=== PATIENT | female | born 2000 | race Caucasian/White ===

== ENCOUNTER → 2018-12-12 | Outpatient (CLI) | payer BC, OTHER ==
[~2018-12-12] MED LIST: Permethrin60 GM TP; Zofran Odt4 MG SL
[2018-12-17 15:06] LABS: CHLAMYDIA TRACHOMATIS, NAA Negative (Negative); NEISSERIA GONORRHOEAE, NAA Negative (Negative)
[2018-12-18 11:54] LABS: HPV 16 Negative (Negative); HPV 18 Negative (Negative); HPV OTHER HR TYPES Negative (Negative)
== END | disposition home or self-care (01) ==
LOC: LAB SHORT 09:44 → LAB 09:44
PROVIDERS: Nurse Practitioner Obstetrics & Gynecology
DX: Z01.419 Encounter for gynecological examination (general) (routine) without abnormal findings (principal); Z11.3 Encounter for screening for infections with a predominantly sexual mode of transmission
CPT/HCPCS: 87491; 87591; 87625; G0123

== ENCOUNTER → 2021-08-23 | Outpatient (CLI) | payer BC | LOC: LAB 16:11 → LAB SHORT 16:11 | DX: O09.93 Supervision of high risk pregnancy, unspecified, third trimester (principal); Z3A.00 Weeks of gestation of pregnancy not specified | CPT/HCPCS: 87081; 87150 ==

== ENCOUNTER 2021-09-09 04:12 | Inpatient (IN) | payer BC ==
[~2021-09-09] VITALS: Ht 170.2 cm; Wt 100.0 kg
[2021-09-09 05:05] LABS: BASOPHILS ABSOLUTE AUTO 0.05 K/mm3 (0.00-0.23); BASOPHILS PERCENT AUTO 0 % (0-2); EOSINOPHILS ABSOLUTE AUTO 0.28 K/mm3 (0.00-0.68); EOSINOPHILS PERCENT AUTO 2 % (0-6); Hematocrit 37.8 % (33.0-51.0); Hemoglobin 12.3 g/dL (11.5-16.0); IMMATURE GRAN ABSOLUTE AUTO 0.05 K/mm3 (0.00-0.10); IMMATURE GRAN PERCENT AUTO 0 % (0-1); LYMPHOCYTES ABSOLUTE AUTO 3.16 K/mm3 (0.84-5.20); LYMPHOCYTES PERCENT AUTO 26 % (21-46); MONOCYTES ABSOLUTE AUTO 0.82 K/mm3 (0.16-1.47); MONOCYTES PERCENT AUTO 7 % (4-13); Mean Corpuscular HGB 28.7 pg (26.0-34.0); Mean Corpuscular HGB Conc 32.5 g/dL (31.5-36.5); Mean Corpuscular Volume 88 fL (80-100); Mean Platelet Volume 10.5 fL (9.1-12.4); NEUTROPHILS ABSOLUTE AUTO 7.86 K/mm3 (1.96-9.15); NEUTROPHILS PERCENT AUTO 64 % (41-73); Platelet Count 277 K/mm3 (150-400); RDW Coefficient Variation 12.9 % (11.7-14.2); RDW Standard Deviation 40.8 fL (35.1-46.3); Red Blood Cell Count 4.29 M/mm3 (3.80-5.20); White Blood Cell Count 12.22 K/mm3 (4.00-11.30)
[2021-09-09] MEDS ORDERED: ASPIR 8181 M1 PO (05:10)
[2021-09-09] MEDS ORDERED: PRENA1 TRUE CO1 EAC1 PO (05:11)
[2021-09-09 05:32] LABS: Influenza A, PCR NEGATIVE (NEGATIVE); Influenza B, PCR NEGATIVE (NEGATIVE); Resp Syncytial Virus, PCR NEGATIVE (NEGATIVE); SARS-Cov-2 (COVID-19) PCR, MMC NEGATIVE (NEGATIVE)
--- NOTE | 2021-09-09 14:46 | NUR ---
1400 oob to shower. voided in shower. left thigh slightly numb but ambulated well. patient instrucsted to call for assistance prior to getting oob
[2021-09-10] MEDS ORDERED: IBUP800 PO (08:23)
== END 2021-09-10 10:44 | disposition home or self-care (01) | DRG 807 ==
LOC: OBS 04:12 → BC 04:15 → OBS 04:30 → BC 04:33
PROVIDERS: Advanced Practice Midwife; ADMIT Obstetrics & Gynecology
PROC: 10E0XZZ Delivery of Products of Conception, External Approach (ICD-10-PCS; principal; 2021-09-09)
PROC: 0UQMXZZ Repair Vulva, External Approach (ICD-10-PCS; 2021-09-09)
DX: O99.214 Obesity complicating childbirth (principal); Z37.0 Single live birth; O99.344 Other mental disorders complicating childbirth; Z20.822 Contact with and (suspected) exposure to COVID-19; F41.9 Anxiety disorder, unspecified; O69.81X0 Labor and delivery complicated by cord around neck, without compression, not applicable or unspecified; O71.82 Other specified trauma to perineum and vulva; E66.9 Obesity, unspecified; Z3A.37 37 weeks gestation of pregnancy; Z87.891 Personal history of nicotine dependence
CPT/HCPCS: 0241U; 36415; 51702; 59025; 85025; 86850; 86900; 86901; A9270; J2590; J3010; J7120

== ENCOUNTER → 2022-10-24 | Outpatient (CLI) | payer BC, OTHER ==
[~2022-10-24] MED LIST changes: +ASPIR 8181 M1 PO; +IBUP800 PO; +PRENA1 TRUE CO1 EAC1 PO
[2022-10-25 10:13] LABS: Candida species (DNA Probe) Negative (NEGATIVE); G. vaginalis (DNA Probe) Positive (NEGATIVE); T. vaginalis (DNA Probe) Negative (NEGATIVE)
== END | disposition home or self-care (01) ==
LOC: LAB SHORT 16:44 → LAB 16:44
PROVIDERS: Advanced Practice Midwife
DX: N76.0 Acute vaginitis (principal)
CPT/HCPCS: 87480; 87510; 87660

== ENCOUNTER → 2022-11-01 | Outpatient (CLI) | payer BC, OTHER | LOC: LAB 08:26 → LAB SHORT 08:26 | DX: R22.2 Localized swelling, mass and lump, trunk (principal) | CPT/HCPCS: 88305 ==

== ENCOUNTER → 2022-11-22 | Outpatient (CLI) | payer BC, OTHER | END | disposition home or self-care (01) | LOC: LAB SHORT 16:49 → LAB 16:49 | PROVIDERS: Family Medicine | DX: Z01.419 Encounter for gynecological examination (general) (routine) without abnormal findings (principal) | CPT/HCPCS: G0145 ==

== ENCOUNTER → 2023-05-03 | Outpatient (CLI) | payer BC, OTHER ==
[2023-05-04 10:25] LABS: Candida species (DNA Probe) Negative (NEGATIVE); G. vaginalis (DNA Probe) Negative (NEGATIVE); T. vaginalis (DNA Probe) Negative (NEGATIVE)
== END | disposition home or self-care (01) ==
LOC: LAB SHORT 14:49 → LAB 14:49
PROVIDERS: Obstetrics & Gynecology
DX: N76.0 Acute vaginitis (principal)
CPT/HCPCS: 87480; 87510; 87660

== ENCOUNTER → 2023-05-04 | Outpatient (CLI) | payer BC, OTHER | LOC: LAB 16:52 | DX: N89.8 Other specified noninflammatory disorders of vagina (principal) ==

== ENCOUNTER → 2024-06-28 | Outpatient (CLI) | payer BC | END | disposition home or self-care (01) | LOC: LAB 18:48 → LAB SHORT 18:48 | DX: N39.0 Urinary tract infection, site not specified (principal) | CPT/HCPCS: 87086 ==

== ENCOUNTER → 2024-09-02 | Outpatient (CLI) | payer BC ==
[2024-09-02 11:55] LABS: Source, Urine Clean Catch
[2024-09-02 14:04] LABS: Appearance, Urine Clear (Clear); Bilirubin, Urine Neg (Neg); Blood, Urine Neg (Neg); Color, Urine Yellow (P-Yellow); Glucose Qualitative, Urine Neg (Neg); Ketones, Urine 3+ (Neg); Leukocyte Esterase, Urine Neg (Neg); Nitrite, Urine Neg (Neg); Protein, Urine 2+ (Neg); Urobilinogen, Urine 1+ (Normal)
[2024-09-02 14:48] LABS: Amorphous Light (0-Heavy); Bacteria Few /hpf; Red Blood Cells, Urine Not Seen /hpf (0-2); Squamous Epithelial Cells Rare /hpf (Few); White Blood Cells, Urine 0-2 /hpf (0-5)
== END | disposition home or self-care (01) ==
LOC: LAB 11:54 → LAB SHORT 11:54
PROVIDERS: Obstetrics & Gynecology
DX: R35.0 Frequency of micturition (principal)
CPT/HCPCS: 81001

== ENCOUNTER → 2024-10-11 | Outpatient (CLI) | payer OTHER ==
[2024-10-12 09:45] LABS: Bacterial Vaginosis PCR Negative (NEGATIVE); Candida glabrata-krusei, PCR NOT DETECTED (NOT DETECT)
[2024-10-12 10:38] LABS: Candida Group, PCR DETECTED (NOT DETECT)
== END | disposition home or self-care (01) ==
LOC: LAB 16:05 → LAB SHORT 16:05
PROVIDERS: Obstetrics & Gynecology
DX: N89.8 Other specified noninflammatory disorders of vagina (principal)
CPT/HCPCS: 81515

== ENCOUNTER → 2024-12-12 | Outpatient (CLI) | payer OTHER ==
[2024-12-13 07:06] LABS: Bacterial Vaginosis PCR Negative (NEGATIVE); Candida Group, PCR NOT DETECTED (NOT DETECT); Candida glabrata-krusei, PCR NOT DETECTED (NOT DETECT)
== END ==
LOC: LAB SHORT 18:37 → LAB 18:37
PROVIDERS: Family Medicine
DX: O09.93 Supervision of high risk pregnancy, unspecified, third trimester (principal); N76.0 Acute vaginitis; Z3A.00 Weeks of gestation of pregnancy not specified
CPT/HCPCS: 81515; 87081; 87150

== ENCOUNTER 2025-01-13 10:45 | Inpatient (IN) | payer OTHER ==
[~2025-01-13] VITALS: Ht 172.7 cm; Wt 109.5 kg
[2025-01-13] VITALS (27 sets, daily range): BP systolic 103–155; BP diastolic 59–92
[2025-01-13] MEDS ORDERED: Misoprostol 200 MCG Tab PR PRN ×2 (11:05→22:30)
[2025-01-13] MEDS ORDERED: ePHEDrine Sulfate 50 MG/ML 1ML Injection XX PRN (11:05)
[2025-01-13] MEDS ORDERED: OXYTOCIN/RINGER'S LACTATE 500 ML IV PRN (11:05)
[2025-01-13] MEDS ORDERED: Oxytocin 10 Unit / ML Vial IM PRN (11:05)
[2025-01-13] MEDS ORDERED: Carboprost Tromethamine 250 MCG/ML 1ML Amp IM PRN ×2 (11:05→22:30)
[2025-01-13] MEDS ORDERED: Tranexamic Acid 100 ML IV SCH (11:05)
[2025-01-13] MEDS ORDERED: FentaNYL 2mcg/ml-Bup 0.1% Epd 250 ML EPI PRN (11:05)
[2025-01-13] MEDS ORDERED: Lactated Ringer's 1,000 ML IV PRN ×3 (11:05→11:10)
[2025-01-13] MEDS ORDERED: Lactated Ringer's 1,000 ML IV SCH ×2 (11:05→22:35)
[2025-01-13] MEDS ORDERED: OXYTOCIN/RINGER'S LACTATE 500 ML IV SCH ×2 (11:05→22:35)
[2025-01-13] MEDS ORDERED: Misoprostol 200 MCG Tab BC PRN (11:05)
[2025-01-13] MEDS ORDERED: Methylergonovine Maleate 0.2MG / ML 1ML Amp IM PRN ×2 (11:05→22:35)
[2025-01-13] MEDS ORDERED: Calcium Carbonate 500 MG Tab Chew PO PRN (11:10)
[2025-01-13] MEDS ORDERED: Acetaminophen 500 MG Tab PO PRN (11:10)
[2025-01-13] MEDS ORDERED: Ondansetron HCl 2 MG / ML 2ML Vial IV PRN (11:10)
[2025-01-13] MEDS ORDERED: FentaNYL Citrate 50 MCG/ML 2 ML Injection IV PRN (11:10)
[2025-01-13] MEDS ORDERED: DOCU100 (11:34)
[2025-01-13 14:24] LABS: BASOPHILS ABSOLUTE AUTO 0.02 K/mm3 (0.00-0.23); BASOPHILS PERCENT AUTO 0 % (0-2); EOSINOPHILS PERCENT AUTO 0 % (0-6); Hematocrit 39.8 % (33.0-51.0); Hemoglobin 13.4 g/dL (11.5-16.0); IMMATURE GRAN ABSOLUTE AUTO 0.06 K/mm3 (0.00-0.10); IMMATURE GRAN PERCENT AUTO 1 % (0-1); LYMPHOCYTES ABSOLUTE AUTO 0.87 K/mm3 (0.84-5.20); LYMPHOCYTES PERCENT AUTO 10 % (21-46); MONOCYTES ABSOLUTE AUTO 0.56 K/mm3 (0.16-1.47); MONOCYTES PERCENT AUTO 7 % (4-13); Mean Corpuscular HGB 28.9 pg (26.0-34.0); Mean Corpuscular HGB Conc 33.7 g/dL (31.5-36.5); Mean Corpuscular Volume 86 fL (80-100); Mean Platelet Volume 11.1 fL (9.1-12.4); NEUTROPHILS ABSOLUTE AUTO 6.91 K/mm3 (1.96-9.15); NEUTROPHILS PERCENT AUTO 82 % (41-73); Platelet Count 217 K/mm3 (150-400); RDW Coefficient Variation 13.5 % (11.7-14.2); RDW Standard Deviation 41.5 fL (35.1-46.3); Red Blood Cell Count 4.64 M/mm3 (3.80-5.20); White Blood Cell Count 8.42 K/mm3 (4.00-11.30)
[2025-01-13] MEDS ORDERED: Rho(D) Immune Globulin 300 MCG / SYR IM SCH (22:35)
[2025-01-13] MEDS ORDERED: Lanolin Cream TOP PRN (22:35)
[2025-01-13] MEDS ORDERED: Benzocaine Topical Anesthetic Spray 60GM TOP PRN (22:35)
[2025-01-13] MEDS ORDERED: Measles/Mumps/Rubella Vaccine 0.5 ML Vial SC ONE (22:35)
[2025-01-13] MEDS ORDERED: Ibuprofen 400 MG Tab PO PRN (22:40)
[2025-01-13] MEDS ORDERED: Witch Hazel/Glycerin PADS TOP PRN (22:40)
[2025-01-13] MEDS ORDERED: Ketorolac Tromethamine 30mg Vial IV PRN (22:40)
[2025-01-13] MEDS ORDERED: Docusate Sodium 100 MG Cap PO PRN (22:40)
[2025-01-14 00:05] VITALS: BP 124/70
[2025-01-14 00:20] VITALS: BP 123/76
[2025-01-14 04:20] VITALS: BP 114/59
[2025-01-14 08:36] VITALS: BP 121/60
[2025-01-14] MEDS ORDERED: Prenatal Vit/FE Fumarate/FA 1 Tab PO SCH (09:00)
[2025-01-14 16:02] VITALS: BP 121/72
[2025-01-14 20:09] VITALS: BP 119/68
[2025-01-14] MEDS ORDERED: Measles/Mumps/Rubella Vaccine 0.5 ML Vial SC ONE (23:40)
[2025-01-15 00:07] VITALS: BP 119/67
== END 2025-01-15 00:15 | disposition home or self-care (01) | DRG 807 ==
LOC: BC 10:45 → OBS 10:45 → BC 11:03
PROVIDERS: ADMIT Obstetrics & Gynecology
PROC: 10E0XZZ Delivery of Products of Conception, External Approach (ICD-10-PCS; principal; 2025-01-13)
PROC: 0UQMXZZ Repair Vulva, External Approach (ICD-10-PCS; 2025-01-13)
PROC: 10907ZC Drainage of Amniotic Fluid, Therapeutic from Products of Conception, Via Natural or Artificial Opening (ICD-10-PCS; 2025-01-13)
PROC: 4A1HXCZ Monitoring of Products of Conception, Cardiac Rate, External Approach (ICD-10-PCS; 2025-01-13)
DX: O48.0 Post-term pregnancy (principal); Z37.0 Single live birth; O99.344 Other mental disorders complicating childbirth; F41.8 Other specified anxiety disorders; Z3A.41 41 weeks gestation of pregnancy; O71.82 Other specified trauma to perineum and vulva; O99.284 Endocrine, nutritional and metabolic diseases complicating childbirth; E28.2 Polycystic ovarian syndrome; O99.214 Obesity complicating childbirth; Z87.891 Personal history of nicotine dependence
CPT/HCPCS: 36415; 51702; 85025; 86850; 86900; 86901; A9270; J7120

== ENCOUNTER → 2025-07-30 | Outpatient (CLI) | payer OTHER ==
[~2025-07-30] MED LIST changes: +DOCU100
== END ==
LOC: LAB 11:35 → LAB SHORT 11:35
DX: N39.0 Urinary tract infection, site not specified (principal)
CPT/HCPCS: 87086